=== PATIENT | female | born 1950 | race African-American/Black ===

== ENCOUNTER 2016-06-03 22:11 | Emergency (ER) | payer SELFPAY ==
[2016-06-03 22:52] LABS: #Basophils 0.1 thou/uL (0.0-0.2); #Eosinphils 0.3 thou/uL (0.0-0.7); #Lymphocytes 2.5 thou/uL (1.20-3.40); #Monocytes 0.6 thou/uL (0.11-0.59); #Neutrophils 3.9 thou/uL (1.40-6.50); %Eosinophils 3.8 % (0.0-10.0); %Lymphocytes 34.8 % (21.0-51.0); %Monocytes 7.5 % (0.0-10.0); %Neutrophils 52.9 % (42.0-75.0); Hemoglobin 10.3 g/dL (12.0-16.0); Mean Corpuscular HGB CONC 33.6 g/dL (32.0-36.0); Mean Corpuscular Hemoglobin 27.4 pg (27.0-31.0); Mean Corpuscular Volume 81.6 fl (81.0-99.0); Mean Platelet Volume 7.4 fL (7.4-10.4); Platelet Count 257 thou/uL (130-400); RBC Distribution Width 16.2 % (11.5-14.5); Red Blood Cell (RBC) Count 3.75 mill/uL (4.20-5.40); White Blood Cell (WBC) Count 7.3 thou/uL (4.8-10.8)
[2016-06-03 23:10] LABS: ALT (SGPT) 15 U/L (0-55); AST (SGOT) 16 U/L (5-34); Albumin 3.7 g/dL (3.4-4.8); Alkaline Phosphatase 87 U/L (40-150); Anion Gap 14 mmol/L (10-20); BUN (Urea Nitrogen) 24 mg/dL (9.8-20.1); Bilirubin, Total 0.3 mg/dL (0.2-1.2); Calc. Creatinine Clearance 0 mL/min (70-130); Carbon Dioxide 26 mmol/L (23-31); Chloride 108 mmol/L (98-107); Estimated GFR-MDRD 39; Globulin 3.9 g/dL (2.4-3.5); Glucose 97 mg/dL (80-115); Protein, Total 7.6 g/dL (5.8-8.1); Sodium 144 mmol/L (136-145)
[2016-06-04] MEDS ORDERED: Cephalexin 500 MG CAP ONE (00:06)
== END 2016-06-04 00:13 | disposition home or self-care (01) ==
LOC: NAV ERS 22:11
DX: L03.116 Cellulitis of left lower limb (principal); L03.115 Cellulitis of right lower limb; J45.909 Unspecified asthma, uncomplicated; I10 Essential (primary) hypertension
CPT/HCPCS: 36415; 80053; 83880; 85025; 99283

== ENCOUNTER 2016-11-05 21:11 | Emergency (ER) | payer MEDICARE, SELFPAY ==
[2016-11-05] MEDS ORDERED: Acetaminophen/Codeine 30-300mg Tablet ONE ×2 (21:50→23:47)
[2016-11-05 22:08] LABS: #Basophils 0.2 thou/uL (0.0-0.2); #Eosinphils 0.4 thou/uL (0.0-0.7); #Lymphocytes 3.6 thou/uL (1.20-3.40); #Monocytes 0.6 thou/uL (0.11-0.59); #Neutrophils 5.6 thou/uL (1.40-6.50); %Basophils 1.7 % (0.0-1.0); %Eosinophils 3.8 % (0.0-10.0); %Lymphocytes 34.7 % (21.0-51.0); %Monocytes 5.6 % (0.0-10.0); %Neutrophils 54.1 % (42.0-75.0); Hemoglobin 9.9 g/dL (12.0-16.0); Mean Corpuscular HGB CONC 31.8 g/dL (32.0-36.0); Mean Corpuscular Hemoglobin 24.7 pg (27.0-31.0); Mean Corpuscular Volume 77.5 fl (81.0-99.0); Mean Platelet Volume 7.3 fL (7.4-10.4); Platelet Count 265 thou/uL (130-400); RBC Distribution Width 17.1 % (11.5-14.5); Red Blood Cell (RBC) Count 4.01 mill/uL (4.20-5.40); White Blood Cell (WBC) Count 10.4 thou/uL (4.8-10.8)
--- NOTE | 2016-11-05 22:12 | RAD ---
SINGLE VIEW OF THE CHEST 11/05/16 COMPARISON: None. HISTORY: Right leg cellulitis for three months. FINDINGS: Single view of the chest shows a normal sized cardiomediastinal silhouette. There is no evidence of consolidation, mass, or pleural effusion. The bones are unremarkable. IMPRESSION: No evidence of acute cardiopulmonary disease. POS: [id number]
[2016-11-05 22:16] LABS: ALT (SGPT) 18 U/L (8-55); AST (SGOT) 18 U/L (5-34); Albumin 3.6 g/dL (3.4-4.8); Alkaline Phosphatase 80 U/L (40-150); Anion Gap 16 mmol/L (10-20); BUN (Urea Nitrogen) 30 mg/dL (9.8-20.1); Bilirubin, Total 0.1 mg/dL (0.2-1.2); Calc. Creatinine Clearance 0 mL/min (70-130); Calcium 9.4 mg/dL (7.8-10.44); Carbon Dioxide 23 mmol/L (23-31); Chloride 107 mmol/L (98-107); Estimated GFR-MDRD 53; Globulin 3.8 g/dL (2.4-3.5); Glucose 99 mg/dL (80-115); Potassium 3.8 mmol/L (3.5-5.1); Protein, Total 7.4 g/dL (6.0-8.3); Sodium 142 mmol/L (136-145)
[2016-11-05 22:19] LABS: CKMB 3.5 ng/mL (0-6.6); Troponin I 0.022 ng/mL (< 0.028)
== END 2016-11-05 23:59 | disposition short-term general hospital (02) ==
LOC: NAV ERS 21:11
DX: M79.661 Pain in right lower leg (principal); R79.1 Abnormal coagulation profile; D64.9 Anemia, unspecified; D86.9 Sarcoidosis, unspecified; E78.5 Hyperlipidemia, unspecified; F32.9 Major depressive disorder, single episode, unspecified; I10 Essential (primary) hypertension; J45.909 Unspecified asthma, uncomplicated; Z87.891 Personal history of nicotine dependence
CPT/HCPCS: 71010; 80053; 82553; 83880; 84484; 85025; 85379; 93005